=== PATIENT | female | born 1955 | race Caucasian/White ===

== ENCOUNTER 2016-11-30 10:00 | Outpatient (CLI) | payer MEDICARE ==
--- NOTE | 2016-11-30 12:24 | CT ---
CT PULMONARY LUNG SCAN: Date: 11/30/16 HISTORY: Smoker for 45 years. FINDINGS: There is a 6.0 mm, well circumscribed, smooth, oval, left perifissural nodule. This is better visua lized on the coronal and sagittal reconstructions. Mild emphysematous changes are noted. No pleural or pericardial effusions are identified. There are vascular calcifications without evidence of aneur ysmal dilatation of the abdominal aorta. Degenerative changes are present in the spine. Upper abdomi nal tomograms demonstrate changes of cholecystectomy. IMPRESSION: Lung-RADS Category 2 - benign findings. RECOMMENDATION: Continue annual screening with LDCT in 12 months. POS: [facility]
--- NOTE | 2016-12-14 08:18 | MMO ---
BILATERAL SCREENING MAMMOGRAM: DATE: 11/30/2016 HISTORY: A 61-year-old female for screening mammography. COMPARISON: 05/08/2011 FINDINGS: Bilateral MLO and CC views of the breasts show scattered fibroglandular breast tissue. Benign-appea ring calcifications are seen in the both breasts. There is no evidence of suspicious mass, suspicio us cluster of microcalcifications, or area of architectural distortion. Interpretation of this mammogram was performed with the assistance of computer-aided detection. IMPRESSION: BIRADS 2: Benign Finding(s) Annual screening mammography is recommended. POS: [facility]
== END 2016-11-30 10:01 | disposition home or self-care (01) ==
LOC: CT 10:00
PROVIDERS: ATTEND Family Medicine
DX: Z12.31 Encounter for screening mammogram for malignant neoplasm of breast (principal); Z12.2 Encounter for screening for malignant neoplasm of respiratory organs; F17.210 Nicotine dependence, cigarettes, uncomplicated
CPT/HCPCS: G0202; G0297; 77067

== ENCOUNTER 2017-04-15 16:45 | Outpatient (CLI) | payer MEDICARE | END 2017-04-15 16:46 | disposition home or self-care (01) | LOC: BICRAD 16:45 | PROVIDERS: ATTEND Family Medicine | DX: M25.562 Pain in left knee (principal) ==

== ENCOUNTER 2017-04-18 14:47 | Outpatient (CLI) | payer MEDICARE ==
--- NOTE | 2017-04-18 15:19 | RAD ---
LEFT LOWER LEG 2 VIEWS: HISTORY: Left leg pain. FINDINGS: The tibia and fibula are intact. No acute fracture, dislocation, dislocation, or aggressive osseous erosions are evident. IMPRESSION: No acute osseous abnormalities are demonstrated. POS: [facility]
--- NOTE | 2017-04-18 15:20 | RAD ---
LEFT HIP TWO VIEWS: History: Left hip pain. FINDINGS: There is mild joint space narrowing, osteophytosis and subchondral sclerosis. No acute fracture or di slocation are apparent. Femoral head contour is maintained. IMPRESSION: Mild osteoarthritic changes left hip. POS: [facility]
== END 2017-04-18 14:48 | disposition home or self-care (01) ==
LOC: BICMAMMO 14:47
PROVIDERS: ATTEND Family Medicine
DX: Z78.0 Asymptomatic menopausal state (principal); M79.605 Pain in left leg; M85.80 Other specified disorders of bone density and structure, unspecified site; M16.12 Unilateral primary osteoarthritis, left hip
CPT/HCPCS: 77080

== ENCOUNTER 2017-04-18 15:54 | Emergency (ER) | payer MEDICARE ==
[2017-04-18 16:43] LABS: #Basophils 0.1 thou/uL (0.0-0.2); #Eosinphils 0.2 thou/uL (0.0-0.7); #Lymphocytes 1.3 thou/uL (1.20-3.40); #Monocytes 0.6 thou/uL (0.11-0.59); %Basophils 0.7 % (0.0-1.0); %Eosinophils 2.3 % (0.0-10.0); %Lymphocytes 14.4 % (21.0-51.0); %Monocytes 6.3 % (0.0-10.0); %Neutrophils 76.3 % (42.0-75.0); Hemoglobin 17.7 g/dL (12.0-16.0); Mean Corpuscular HGB CONC 33.6 g/dL (32.0-36.0); Mean Corpuscular Hemoglobin 30.2 pg (27.0-31.0); Mean Corpuscular Volume 89.8 fl (81.0-99.0); Mean Platelet Volume 6.4 fL (7.4-10.4); Platelet Count 325 thou/uL (130-400); RBC Distribution Width 12.5 % (11.5-14.5); Red Blood Cell (RBC) Count 5.87 mill/uL (4.20-5.40); White Blood Cell (WBC) Count 9.2 thou/uL (4.8-10.8)
[2017-04-18 17:03] LABS: ALT (SGPT) 21 U/L (8-55); AST (SGOT) 20 U/L (5-34); Albumin 3.6 g/dL (3.4-4.8); Alkaline Phosphatase 131 U/L (40-150); Anion Gap 13 mmol/L (10-20); BUN (Urea Nitrogen) 18 mg/dL (9.8-20.1); Bilirubin, Total 0.4 mg/dL (0.2-1.2); CK (CPK) 45 U/L (29-168); Calc. Creatinine Clearance 0 mL/min (70-130); Calcium 9.3 mg/dL (7.8-10.44); Carbon Dioxide 24 mmol/L (23-31); Chloride 102 mmol/L (98-107); Estimated GFR-MDRD 36; Globulin 3.2 g/dL (2.4-3.5); Glucose 112 mg/dL (80-115); Potassium 3.7 mmol/L (3.5-5.1); Protein, Total 6.8 g/dL (6.0-8.3); Sodium 135 mmol/L (136-145)
[2017-04-18 17:18] LABS: Magnesium 1.9 mg/dL (1.6-2.6); Phosphorus 3.9 mg/dL (2.3-4.7)
[2017-04-18 18:15] LABS: Bilirubin Negative (Negative); Blood, Urine Negative (Negative); Clarity CLEAR (Clear); Glucose, Urine (Dipstick) Negative (Negative); Leukocyte Negative (Negative); Nitrite Negative (Negative); Protein, Urine (Dipstick) Negative (Neg-Trace); Specific Gravity, Urine 1.005 (1.002-1.036); Urobilinogen 0.2 mg/dL (0.2-1.0)
[2017-04-18] MEDS ORDERED: Diazepam 5 MG TAB ONE (18:26)
== END 2017-04-18 19:32 | disposition home or self-care (01) ==
LOC: ERS 15:54
DX: I89.0 Lymphedema, not elsewhere classified (principal); R06.00 Dyspnea, unspecified; R79.89 Other specified abnormal findings of blood chemistry; E78.5 Hyperlipidemia, unspecified; F31.9 Bipolar disorder, unspecified; F41.9 Anxiety disorder, unspecified; J44.9 Chronic obstructive pulmonary disease, unspecified; F17.210 Nicotine dependence, cigarettes, uncomplicated; I10 Essential (primary) hypertension; Z86.73 Personal history of transient ischemic attack (TIA), and cerebral infarction without residual deficits; Z79.899 Other long term (current) drug therapy
CPT/HCPCS: 36415; 80053; 81003; 82550; 83735; 84100; 85025; 93005; 96360; 96361

== ENCOUNTER 2017-12-02 15:38 | Outpatient (CLI) | payer MEDICARE ==
--- NOTE | 2017-12-02 17:31 | ULT ---
THYROID ULTRASOUND: INDICATIONS: History of thyroid nodules. COMPARISON: None. FINDINGS: The thyroid isthmus measures 0.2 cm. The right thyroid lobe measures 4.6 x 1.6 x 1.3 cm. The left thyroid lobe measures 4.9 x 1.4 x 1.6 cm. There are multiple nodules within both thyroid lobes. There is a 5 x 5 x 4 mm hypoechoic nodule within the mid to upper pole of the right thyroid gland. T here is an additional 5 mm hypoechoic nodule seen within the mid pole of the right thyroid lobe. The re is a 1.1 x 0.7 x 1.3 cm, solid, hyperechoic to isoechoic, well circumscribed nodule within the low er pole of the right thyroid lobe. There is a complex, partially cystic, mixed echogenic, well circumscribed nodule within the superior pole of the left thyroid lobe, measuring 1.4 x 1 x 0.8 cm. There is a simple cyst, measuring 1 cm, w ithin the inferior pole, left thyroid gland. IMPRESSION: 1. Solid nodule within the inferior pole of the right thyroid gland, consistent with a TI-RADS 3 les ion. No additional followup is recommended, as this lesion measures less than 1.5 cm in size. 2. Complex, partially cystic, mixed echogenicity, well circumscribed nodule within the superior pole of the left thyroid gland is consistent with a TI-RADS 3 lesion. No additional followup is recommen ded, as this lesion is less than 1.5 cm in size. POS: [facility]
== END 2017-12-02 15:39 | disposition home or self-care (01) ==
LOC: BICULT 15:38
PROVIDERS: ATTEND Family Medicine
DX: E07.89 Other specified disorders of thyroid (principal); E04.1 Nontoxic single thyroid nodule
CPT/HCPCS: 76536

== ENCOUNTER 2018-03-26 11:51 | Outpatient (CLI) | payer MEDICARE ==
[~2018-03-26 11:51] MED LIST: Iopamidol 370 76% 100 ML VIAL ONE
--- NOTE | 2018-03-26 14:31 | CT ---
CT CHEST WITHOUT CONTRAST: Date: 03/26/18 PROVIDED CLINICAL HISTORY: Nicotine dependence, lung cancer screening. FINDINGS: Comparison with 11/30/16. Vascular calcification, including coronary calcium, is demonstrated. The heart, pericardium, and grea t vessels are suboptimally evaluated on the absence of IV contrast material but demonstrate an otherw ise unremarkable unenhanced CT appearance. There is no evidence for thoracic lymph node enlargement with limitations in evaluation for hilar mila nopathy given lack of IV contrast. The airway appears patent and of normal caliber. Stable pleural based lymph node involving the left hemithorax. The lungs are free of significant nodu le or parenchymal opacity. Scattered emphysematous changes are seen. There is no pleural fluid, pleural thickening, or pneumothorax apparent. The visualized portions of the upper abdomen demonstrate an unremarkable unenhanced CT appearance. The osseous structures demonstrate no concerning lytic or blastic lesions. IMPRESSION: Stable exam. Lung-RADS Category 2 - Benign findings. Annual screening recommended. POS: [facility]
--- NOTE | 2018-03-26 14:52 | CT ---
CTA CAROTIDS: HISTORY: Abnormal carotid ultrasound. TECHNIQUE: A contrast enhanced CTA of the carotid arteries is performed, and 2D and 3D reconstructive images are performed on an independent 3D work station. FINDINGS: CTA images demonstrate atherosclerotic calcified and noncalcified plaque seen in the ascending aorta and aortic arch. Focal area of atherosclerotic plaque and approximately 60% origin left subclavian artery stenosis is seen. There is also some atherosclerotic plaque in the origin of the right brachiocephalic artery. Good flow is seen in the origin of the right and left vertebral arteries. RIGHT CAROTID: Good flow is seen in the proximal, mid, and distal right CCA. Circumferential calcif ied and noncalcified plaque is seen in the distal aspect of the right CCA, extending into the right c arotid bulb. There is complete occlusion of the right ICA from its origin. Good flow is seen in the right ECA. LEFT CAROTID: The left common carotid artery has some minimal plaque in the origin, extending into t he left CCA. Calcified and noncalcified plaque with ulceration is seen in the distal aspect of the l eft CCA, with calcified and noncalcified plaques extending into the left ICA, resulting in approximat ryan 25% left ICA origin stenosis. Some atherosclerotic plaque is seen in the origin of the left ECA. IMPRESSION: Extensive bilateral distal common carotid artery calcified plaques with occlusion of the right director internal audit al carotid artery and some atherosclerotic plaque in the proximal left internal carotid artery origin . POS: [facility]
== END 2018-03-26 11:52 | disposition home or self-care (01) ==
LOC: CT 11:51
PROVIDERS: ATTEND Thoracic Surgery (Cardiothoracic Vascular Surgery)
DX: F17.210 Nicotine dependence, cigarettes, uncomplicated (principal); I65.23 Occlusion and stenosis of bilateral carotid arteries
CPT/HCPCS: 70498; 82565; G0297

== ENCOUNTER 2018-11-26 11:58 | Outpatient (CLI) | payer MEDICARE ==
--- NOTE | 2018-11-26 13:12 | MMO ---
Bilateral MAMMO Bilat Screen DDI+DUSTY. CLINICAL HISTORY: Patient is 63 years old and is seen for screening. The patient has no family history of breast cancer. The patient has no personal history of cancer. VIEWS: The views performed were: bilateral craniocaudal with tomosynthesis and bilateral mediolateral oblique with tomosynthesis. FILMS COMPARED: The present examination has been compared to prior imaging studies performed at [facility] on 05/08/2011, and at [facility] on 11/30/2016. This study has been interpreted with the assistance of computer-aided detection. MAMMOGRAM FINDINGS: The breasts are heterogeneously dense, which could obscure a lesion on mammography. There are stable benign appearing calcifications seen in both breasts. There are no suspicious masses, suspicious calcifications, or new areas of architectural distortion. IMPRESSION: THERE IS NO MAMMOGRAPHIC EVIDENCE OF MALIGNANCY. A ROUTINE FOLLOW-UP MAMMOGRAM IN 1 YEAR IS RECOMMENDED. THE RESULTS OF THIS EXAM WERE SENT TO THE PATIENT. ACR BI-RADS Category 2 - Benign finding MAMMOGRAPHY NOTE: 1. A negative mammogram report should not delay a biopsy if a dominant of clinically suspicious mass is present. 2. Approximately 10% to 15% of breast cancers are not detected by mammography. 3. Adenosis and dense breasts may obscure an underlying neoplasm. Reported by: YULIYA PRESLEY MD Electonically Signed: [id number]
== END 2018-11-26 11:59 | disposition home or self-care (01) ==
LOC: BICMAMMO 11:58
PROVIDERS: ATTEND Family Medicine
DX: Z12.31 Encounter for screening mammogram for malignant neoplasm of breast (principal)
CPT/HCPCS: 77063; 77067

== ENCOUNTER 2019-04-23 08:37 | Outpatient (CLI) | payer MEDICARE ==
--- NOTE | 2019-04-23 11:20 | CT ---
CT PULMONARY LUNG SCAN: HISTORY: Smoker for 46 years. The patient still smokes 2 packs a day. COMPARISON: A 03/26/2018 exam. FINDINGS: There are changes of centrilobular emphysema noted. There are emphysematous blebs seen in the upper lobes. A pleural-based nodule along the major fissure on the left on axial image 103 is stable. There has been development of a small focus of slight ground-glass nodularity, although it may have a small semisolid component, within the right lower lobe. This is seen on axial image 126. This dens ity measures 5-6 mm in size. It is possible that this is just a small focus of pneumonitis. No homero tional nodular areas are seen. Reticular changes in the lung bases are probably related to scarring. No significant mediastinal adenopathy. Coronary calcifications are present. Visualized liver parenchyma shows no focal findings. IMPRESSION: 1. Lung RADS category 3 - probably benign. A new hard solid nodule has developed in the right lower lobe less than 6 mm in size. The recommendation is for a 6-month low-dose CT examination. 2. Lung RADS category S. This additional category is given for the presence of coronary calcificati ons. POS: [facility]
== END 2019-04-23 08:38 | disposition home or self-care (01) ==
LOC: CT 08:37
PROVIDERS: ATTEND Family Medicine
DX: Z12.2 Encounter for screening for malignant neoplasm of respiratory organs (principal); Z00.00 Encounter for general adult medical examination without abnormal findings; F17.210 Nicotine dependence, cigarettes, uncomplicated; R91.1 Solitary pulmonary nodule; I25.10 Atherosclerotic heart disease of native coronary artery without angina pectoris
CPT/HCPCS: G0297

== ENCOUNTER 2019-08-28 09:23 | Outpatient (CLI) | payer MEDICARE ==
--- NOTE | 2019-08-28 10:13 | MRI ---
MRI BRAIN EXAM OF THE [place]: HISTORY: Occluded right internal carotid artery noted on CT angiogram 03/26/2018. Left-sided weakness. CVA. TECHNIQUE: MR angiogram of the [place] IS performed in the axial plane utilizing 3-D [id number] mansoor ging. Maximum intensity projection images are submitted for dictation. FINDINGS: There is absence of flow related signal in the distal cervical and intracranial right internal caroti d artery, compatible with recent CT angiogram of the neck. There is appropriate flow related signal in the distal cervical and intracranial left internal carotid artery. Anterior circulation: There is flow related signal in the left and right M1 segments as well as A1 se gments. There is flow in the right A1 and M1 segments via patent collaterals from the anterior communicating artery as well as posterior communicating artery. No evidence of significant stenosis i n the right A1 or M1 segment OR proximal bilateral A2 segments. There is short great moderate stenosis/decreased flow related signal involving the mid left M1 segment. Symmetric proximal MCA bran ches. Posterior circulation demonstrates appropriate flow related signal in bilateral intracranial vertebra l arteries. Bilateral PICA artery origins have appropriate flow related signal. Both vertebral arteries supply a normal appearing basilar artery. Basilar artery and P1 segments have appropriate fl ow related signal. FLAIR images demonstrate extensive cavitary lacunar infarcts involving the right martin radiata and r ight centrum semiovale. Absent restricted diffusion. IMPRESSION: 1. Extensive chronic small vessel ischemic changes as well as lacunar infarcts, incompletely evaluate d. Better interrogation with a pre and postcontrast brain MRI is recommended. 2. Occlusion of the right internal carotid artery, compatible with CT angiogram the neck 03/26/2018. 3. Moderate stenosis/decreased flow related signal in the mid left M1 segment. CODE T Transcribed Date/Time: 08/28/2019 10:22 AM
== END 2019-08-28 09:24 | disposition home or self-care (01) ==
LOC: TBSIIMAG 09:23
PROVIDERS: ATTEND Family Medicine
DX: I63.231 Cerebral infarction due to unspecified occlusion or stenosis of right carotid arteries (principal); R53.1 Weakness; N18.3 Chronic kidney disease, stage 3 (moderate)
CPT/HCPCS: 70544

== ENCOUNTER 2019-12-10 18:24 | Inpatient (IN) | payer MEDICARE, OTHER ==
[2019-12-10] MEDS ORDERED: Morphine 4 MG/ML VIAL ONE (19:15)
[2019-12-10] MEDS ORDERED: Ondansetron PF 4 MG/2 ML Vial ONE (19:15)
[2019-12-10 19:45] LABS: Hemoglobin 16.1 g/dL (12.0-16.0); Mean Corpuscular HGB CONC 35.4 g/dL (32.0-36.0); Mean Corpuscular Hemoglobin 31.4 pg (27.0-31.0); Mean Corpuscular Volume 88.7 fL (78.0-98.0); Platelet Count 273 thou/uL (130-400); RBC Distribution Width 13.1 % (11.5-14.5); Red Blood Cell (RBC) Count 5.12 mill/uL (4.20-5.40); White Blood Cell (WBC) Count 11.4 thou/uL (4.8-10.8)
--- NOTE | 2019-12-10 19:51 | RAD ---
Exam:3 views left foot HISTORY: Fall. Trauma. Pain. COMPARISON: None FINDINGS: There is marked soft tissue swelling the midfoot. Diffuse bone demineralization. There does appear to be a nondisplaced fracture involving the second metatarsal head and a mildly displaced fracture along the third metatarsal head. Lisfranc alignment is maintained. IMPRESSION: Metacarpal fractures. Associated soft tissue swelling.
--- NOTE | 2019-12-10 20:04 | RAD ---
EXAM: RIGHT KNEE FOUR VIEWS: 12/10/19 HISTORY: Injury from a fall, left sided weakness. FINDINGS: No evidence for acute fracture or dislocation. No abnormal joint effusion. Very mild degenerative and osteoarthrosis change. IMPRESSION: Unremarkable right knee. POS: [facility]
[2019-12-10 20:05] LABS: ALT (SGPT) 11 U/L (8-55); AST (SGOT) 23 U/L (5-34); Albumin 3.4 g/dL (3.4-4.8); Alkaline Phosphatase 100 U/L (40-110); Anion Gap 15 mmol/L (10-20); BUN (Urea Nitrogen) 13 mg/dL (9.8-20.1); Bilirubin, Total 0.3 mg/dL (0.2-1.2); Calc. Creatinine Clearance 0 mL/min (70-130); Calcium 8.6 mg/dL (7.8-10.44); Carbon Dioxide 24 mmol/L (23-31); Chloride 89 mmol/L (98-107); Estimated GFR-MDRD 30; Glucose 125 mg/dL (80-115); Potassium 4.1 mmol/L (3.5-5.1); Protein, Total 6.4 g/dL (6.0-8.3); Sodium 124 mmol/L (136-145)
--- NOTE | 2019-12-10 20:06 | RAD ---
EXAM: CHEST ONE VIEW: 12/10/19 HISTORY: Injury from trauma. Heart size is within normal limits. The lungs appear clear. No confluent pneumonia, overt edema, or p leural effusion. IMPRESSION: No acute intrathoracic disease. POS: [facility]
[2019-12-10 20:07] LABS: Band 5 % (5-11); Eosinophils 1 % (0-10); Lymphocytes 3 % (21-51); MDiff Complete? YES; Monocytes 4 % (0-10); Neutrophil 87 % (42-75)
--- NOTE | 2019-12-10 20:13 | CT ---
Exam: Head CT without contrast HISTORY: Fall. Pain. COMPARISON: none FINDINGS: Hemorrhage: No intraparenchymal hemorrhage or extra-axial hematoma. Brain parenchyma: Cortical nichols-white matter differentiation is preserved. No mass effect or midline shift. Basilar cisterns are patent.White matter hypodensities are noted in the right frontal subcortical white matter. There are corresponding FLAIR hyperintensities noted on a brain MRI 08/28/19. Chronic small vessel ischemic changes are favored. Ventricular system: Ventricles and sulci are patent and symmetric. Calvarium: Intact. Sinuses and mastoid air cells: Adequate aeration. IMPRESSION: No acute intracranial process.
[2019-12-10] MEDS ORDERED: Aspirin 325 MG TAB ONE (20:39)
[2019-12-10] MEDS ORDERED: Boostrix 0.5 ML VIAL ONE (21:01)
--- NOTE | 2019-12-10 23:56 | PDOC.HHP ---
Hospitalist HPI - History of Present Illness L sided weakness History of Present Illness: Patient is a 64 year old female with PMH multiple TIAs who presents to ED for L sided weakness. She felt weak today and fell, unable to correct w/ L sided weakness, landed on L side and hit head. CT head performed in ED and negative. CXR without acute findingL foot/knee XR performed after she fell on it, and found metatarsal fracture, placed in splint. She reports many of similar episodes of unilateral weakness over last few months, approximately 20 episodes, they always resolve on their own rapidly though. She reports they beging after coughing or standing up straight. She has extensive history of carotid disease and has had bilateral endartarectomies and had a redo R endartarectomy in 2018. She sees Dr Hawkins of cardiology, saw a neurologist a long time ago, but that was for pain and not current symptoms. She is supposed to take aspirin and plavix daily, she is compliant with plavix but not with aspirin. Denies history of Afib. stroke in 1999 reported with no deficits. Patient to be admitted for workup of L sided weakness. Hospitalist ROS - Review of Systems Constitutional: denies: fever, chills, sweats, weakness, malaise, other Eyes: denies: pain, vision change, conjunctivae inflammation, eyelid inflamma tion, redness, other ENT: denies: ear pain, ear discharge, nose pain, nose discharge, nose congestion, mouth pain, mouth swelling, throat pain, throat swelling, other Respiratory: denies: cough, dry, shortness of breath, hemoptysis, SOB with excertion, pleuritic pain, sputum, wheezing, other Cardiovascular: denies: chest pain, palpitations, orthopnea, paroxysmal noc. dyspnea, edema, light headedness, other Gastrointestinal: denies: nausea, vomiting, abdominal pain, diarrhea, constipation, melena, hematochezia, other Genitourinary: denies: dysuria, frequency, incontinence, hematuria, retention, other Musculoskeletal: reports: foot pain (L sided in splint). denies: neck pain, shoulder pain, arm pain, back pain, hand pain, leg pain, other Skin: denies: rash, lesions, felecia, bruising, other Neurological: reports: weakness (L sided), numbness (L sided). denies: incoordination, change in speech, confusion, seizures, other All other systems reviewed; all pertinent +/- noted in HPI/Subj - Medication Medications: protonix 40mg po daily metoprolol tartrate 50mg po daily plavix 75mg po daily ativan 1mg po prn anxiety KCL 20meq daily losartan 25mg po daily lasix 40mg po daily Hospitalist History - Past Medical History Other Medical History: stroke in 1999 carotid artery disease HLD HTN COPD anxiety bipolar - Past Surgical History Other Surgical History: CABG appendectomy cholecystectomy hysterectomy - Family History Family History: reports: no pertinent history - Social History Smoking Status: Current every day smoker Alcohol: reports: None Drugs: reports: none - Exam General Appearance: NAD, awake alert Eye: PERRL, anicteric sclera ENT: normocephalic atraumatic, no oropharyngeal lesions, moist mucosa Neck: supple, symmetric, no JVD, no thyromegaly, no lymphadenopathy, no carotid bruit Heart: RRR, no murmur, no gallops, no rubs, normal peripheral pulses Respiratory: CTAB, no wheezes, no rales, no ronchi, normal chest expansion, no tachypnea, normal percussion Gastrointestinal: soft, non-tender, non-distended, normal bowel sounds, no palpable masses, no hepatomegaly, no splenomegaly, no bruit Extremities: no cyanosis, no clubbing, no edema Extremities - other findings: L foot in sling, antalgic ROM, tender to palpation, pulses 2+ equal Skin: normal turgor, no lesions, no rashes Neurological: cranial nerve grossly intact Neurological - other findings: L arm and leg reduced sensation L arm 4/5 strength. L foot painful limits Musculoskeletal: generalized weakness Psychiatric: normal affect, normal behavior, A&O x 3 Hospitalist Results - Labs Result Diagrams: 12/10/19 19:35 12/10/19 19:35 Lab results: WBC 11.4 thou/uL (4.8-10.8) H 12/10/19 19:35 Hgb 16.1 g/dL (12.0-16.0) H 12/10/19 19:35 Hct 45.4 % (36.0-47.0) 12/10/19 19:35 MCV 88.7 fL (78.0-98.0) 12/10/19 19:35 Plt Count 273 thou/uL (130-400) 12/10/19 19:35 Band Neuts % (Manual) 5 % (5-11) 12/10/19 19:35 Sodium 124 mmol/L (136-145) L 12/10/19 19:35 Potassium 4.1 mmol/L (3.5-5.1) 12/10/19 19:35 Chloride 89 mmol/L (98-107) L 12/10/19 19:35 Carbon Dioxide 24 mmol/L (23-31) 12/10/19 19:35 BUN 13 mg/dL (9.8-20.1) 12/10/19 19:35 Creatinine 1.69 mg/dL (0.6-1.1) H 12/10/19 19:35 Glucose 125 mg/dL (80-115) H 12/10/19 19:35 Calcium 8.6 mg/dL (7.8-10.44) 12/10/19 19:35 Total Bilirubin 0.3 mg/dL (0.2-1.2) 12/10/19 19:35 AST 23 U/L (5-34) 12/10/19 19:35 ALT 11 U/L (8-55) 12/10/19 19:35 Alkaline Phosphatase 100 U/L (40-110) 12/10/19 19:35 Troponin I Less than 0.010 ng/mL (< 0.028) 12/10/19 19:35 Serum Total Protein 6.4 g/dL (6.0-8.3) 12/10/19 19:35 Albumin 3.4 g/dL (3.4-4.8) 12/10/19 19:35 Additional comment: Labs, imaging reports, ED records, EKG reviewed Hospitalist H&P A/P - Plan Plan: Patient is a 64 year old female with PMH multiple TIAs who presents to ED for L sided weakness. # L sided weakness - concerning for TIA # history of stroke in 1999 # carotid artery disease # HLD Today had new L sided weakness which caused fall, CT head performed in ED and negative, she reports many of similar episodes of unilateral weakness over last few months, approximately 20 episodes, they always resolve on their own rapidly though. She reports they begin after coughing or standing up straight. She has extensive history of carotid disease and has had bilateral endartarectomies and had a redo R endartarectomy in 2018. She sees Dr Hawkins of cardiology, saw a neurologist a long time ago, but that was for pain and not current symptoms. She is supposed to take aspirin and plavix daily, she is compliant with plavix but not with aspirin. Denies history of Afib. stroke in 2000 reported with no deficits. Patient to be admitted for workup of L sided weakness. - admit to neurology floor - permissive HTN - stroke team consult - consult neurology/cardiology - concern that source of multiple strokes could be heart or carotid artery throwing clots, will order US carotid and echocardiogram and consult Dr Hawkins who is more familiar with case and may be able to supplement history - test of choice for vasculature would probably be CTA or MRA of head/neck, cannot do CT due to GFR, will defer to neurology and await return of kidney function - should stop smoking, see below - load aspirin, continue plavix, start very high intensity statin # HTN - permissive HTN # COPD - no wheezing on my exam, PRN nebs ordered # anxiety, bipolar - resume home meds once med rec complete # leukocytosis - presume secondary to stress of trauma, follow up UA # CKD vs JACINTO - hold cozaar, trend BMP # hyponatremia - hold lasix/cozaar. fluid restrictions. trend BMP. consider ne phrology consult # tobacco abuse - smokes 4 ppd - cessation education ordered - nicotine patch # metatarsal fracture - sling placed in ED - consult orthopedic surgery DVT/GI ppx
[2019-12-11] MEDS ORDERED: Labetalol HCl 100 MG/20 ML VIAL SLOW IVP PRN ×2 (00:04→00:14)
[2019-12-11] MEDS ORDERED: hydrALAZINE 20 MG/ML VIAL SLOW IVP PRN ×2 (00:04→00:14)
[2019-12-11] MEDS ORDERED: Enalaprilat Dihydrate 1.25 MG/ML VIAL SLOW IVP PRN (00:04)
[2019-12-11] MEDS ORDERED: cloNIDine 0.1 MG TAB PO PRN (00:14)
[2019-12-11] MEDS ORDERED: Promethazine HCl 12.5 MG in Sodium Chloride 0.9% 50 ML IVPB PRN (00:14)
[2019-12-11] MEDS ORDERED: Ondansetron PF 4 MG/2 ML Vial IVP PRN (00:14)
[2019-12-11] MEDS ORDERED: Guaifenesin DM 100-10/5 ML UDCUP PO PRN (00:14)
[2019-12-11] MEDS ORDERED: Acetaminophen 325 MG TAB PO PRN (00:14)
[2019-12-11] MEDS ORDERED: Aspirin 325 mg Enteric Coated Tablet PO SCH (00:15)
[2019-12-11] MEDS ORDERED: Electrolyte Replacement Protoc 1 EACH EACH FS PRN (00:15)
[2019-12-11 00:42] VITALS: BMI 32.8
[2019-12-11] MEDS: HYDROcodone/Acetaminophen 5/325 mg Tablet PO PRN ×2 (01:36→11:57)
[2019-12-11 02:04] LABS: Troponin I 0.021 ng/mL (< 0.028)
[2019-12-11 02:31] LABS: Bilirubin Negative (Negative); Blood, Urine Negative (Negative); Clarity Clear (Clear); Glucose, Urine (Dipstick) Normal (Negative); Ketone, Urine Negative (Negative); Leukocyte Negative Leu/uL (Negative); Nitrite Negative (Negative); Protein, Urine (Dipstick) Negative (Neg-Trace); RBC/HPF 0-3 HPF (0-3); Specific Gravity, Urine 1.009 (1.002-1.036); Squamous Epithelial 0-3 HPF (0-3); Urobilinogen Normal mg/dL (Less than 2); WBC/HPF 0-3 HPF (0-3)
[2019-12-11 02:38] LABS: Bacteria/HPF Rare-Few HPF (None Seen)
[2019-12-11 02:40] LABS: Urine Culture Reflex No No
[2019-12-11] MEDS ORDERED: Lorazepam 2 MG/ML VIAL SLOW IVP PRN (03:20)
[2019-12-11 05:12] LABS: #Eosinphils 0.1 thou/uL (0.0-0.7); #Lymphocytes 0.7 thou/uL (1.20-3.40); #Monocytes 0.6 thou/uL (0.11-0.59); #Neutrophils 5.8 thou/uL (1.40-6.50); %Basophils 0.3 % (0.0-1.0); %Eosinophils 1.1 % (0.0-10.0); %Lymphocytes 9.6 % (21.0-51.0); %Monocytes 8.3 % (0.0-10.0); %Neutrophils 80.7 % (42.0-75.0); Hemoglobin 14.4 g/dL (12.0-16.0); Mean Corpuscular HGB CONC 35.1 g/dL (32.0-36.0); Mean Corpuscular Hemoglobin 31.6 pg (27.0-31.0); Mean Corpuscular Volume 89.9 fL (78.0-98.0); Mean Platelet Volume 6.7 fL (7.4-10.4); Platelet Count 231 thou/uL (130-400); RBC Distribution Width 12.9 % (11.5-14.5); Red Blood Cell (RBC) Count 4.56 mill/uL (4.20-5.40); White Blood Cell (WBC) Count 7.1 thou/uL (4.8-10.8)
[2019-12-11 05:35] LABS: Anion Gap 9 mmol/L (10-20); BUN (Urea Nitrogen) 15 mg/dL (9.8-20.1); Calc. Creatinine Clearance 52 mL/min (70-130); Calcium 8.4 mg/dL (7.8-10.44); Carbon Dioxide 30 mmol/L (23-31); Cardiac Risk 3.8 (Less than 4.5); Chloride 88 mmol/L (98-107); Cholesterol 115 mg/dl (< 200 Desired); Estimated GFR-MDRD 32; Glucose 129 mg/dL (80-115); HDL Cholesterol 30 mg/dL (>60 Neg Risk); LDL Cholesterol, Calculated 57 mg/dL; Magnesium 1.8 mg/dL (1.6-2.6); Potassium 3.3 mmol/L (3.5-5.1); Sodium 124 mmol/L (136-145); Triglycerides 139 mg/dL (Less than 150)
[2019-12-11] MEDS ORDERED: Magnesium 2 GM/50 ML 2 GM in Premix Bag 1 BAG IVPB SCH (06:45)
[2019-12-11] MEDS ORDERED: Potassium Chloride 20 MEQ TAB PO SCH ×2 (07:15→13:45)
[2019-12-11] MEDS: FLU VACC QS2020-21(65YR UP)/PF 240 MCG/0.7 ML SYRINGE IM ONE (08:43)
[2019-12-11] MEDS: Aspirin 81 mg Enteric Coated Tablet PO SCH (08:44)
[2019-12-11] MEDS: Nicotine 21 MG PATCH TD SCH (08:45)
[2019-12-11] MEDS: Polyethylene Glycol 3350 17 GM Packet PO SCH (08:46)
[2019-12-11] MEDS: Enoxaparin Sodium 40 MG/0.4 ML SYRINGE SC SCH (08:46)
[2019-12-11] MEDS ORDERED: Clopidogrel Bisulfate 75 MG TAB PO SCH (09:00)
--- NOTE | 2019-12-11 09:55 | MRI ---
Exam: Brain MRI without contrast HISTORY: Stroke COMPARISON: None FINDINGS: Calvarial marrow signal intensity: Appropriate T1 signal Gradient echo sequence: No hemorrhage Brain parenchyma: No mass, mass effect or midline shift. Brain volume, age-appropriate. Cortical nichols-white matter differentiation: Preserved Restricted diffusion: Central arterial flow voids are maintained. Absent restricted diffusion White matter signal intensities: T2, FLAIR white matter hyperintensities due to chronic small vessel ischemic changes Sinuses: Adequate aeration of the paranasal sinuses and mastoid air cells. IMPRESSION: 1. Absent restricted diffusion. No acute infarct.
--- NOTE | 2019-12-11 09:57 | CON ---
DATE OF CONSULTATION: 12/11/2019 [facility]IC[facility] CONSULTING PHYSICIAN: Inderjit Desai MD REASON FOR CONSULTATION: Left metatarsal fracture. HISTORY OF PRESENT ILLNESS: This is a 64-year-old female with past medical history including multiple TIAs, who presented to our emergency department for left-sided weakness and a fall at home. She states that she landed on her left side and hit her head. Workup in the emergency department was negative for an acute stroke. She was found to have a left third metatarsal fracture. This was initially placed in a splint and she was transferred to the floor for hospital admission. We have been consulted for this reason. Currently at bedside, the patient is being moved to the transport [facility] for MRI. She denies any numbness or tingling. She states that she was put in a postoperative shoe recently, and feels much better in regard to her foot pain. Pain is resolved with lying still and worsened with movement. PAST MEDICAL HISTORY: Includes CVA in 1999, carotid artery disease, hyperlipidemia, hypertension, COPD, anxiety, and bipolar disorder. PAST SURGICAL HISTORY: CABG, appendectomy, cholecystectomy, and hysterectomy. SOCIAL HISTORY: The patient is an everyday smoker. She denies any alcohol or drug use. She normally gets around without the use of any assistive aids. FAMILY HISTORY: Reviewed and noncontributory for this visit. REVIEW OF SYSTEMS: Ten-point review of systems conducted and otherwise negative except for stated above. CURRENT PHYSICAL EXAMINATION: VITAL SIGNS: Shows vital signs including temperature of 97.3, pulse of 59, respiratory rate of 20, O2 saturation 92% on room air, and blood pressure of 121/69. GENERAL: The patient is awake and alert. She is in no apparent distress. She is pleasant and cooperative with exam today. She is currently being moved over to the [facility] for MRI evaluation at the time of my exam. HEENT: Head is normocephalic and atraumatic. NECK: Supple. Trachea midline, and breathing is nonlabored. EXTREMITIES: Evaluation of the left lower extremity shows an Bruno wrap over the foot with a postoperative shoe present. Postoperative shoe was removed briefly for evaluation. The patient is tender to palpation along the midfoot. She is able to move all her toes. She is able to plantar flex and dorsiflex at the ankle. Distal neurovascular status intact. RADIOGRAPHIC IMAGING: Reviewed today including three views of the left foot demonstrates a nondisplaced fracture of the third metatarsal at the neck. ASSESSMENT: Left third metatarsal fracture. PLAN: At this time, the patient has been placed in a postoperative shoe. I have ordered an orthopedic boot. She states she is comfortable in the shoe. If she would like to stay in this, that is okay with us. If she would like to transition to the boot, that is also okay with us. She may remove this while in bed or keep it in position if it makes her more comfortable. She may remove it for showering. Weight bear as tolerated. We will see her for orthopedic followup in our clinic in 3 to 4 weeks. Job ID: [id number]
[2019-12-11] MEDS ORDERED: Sodium Chloride 0.9% 500 ML IV SCH (10:00)
[2019-12-11] MEDS ORDERED: Lorazepam 1 MG TAB PO PRN (10:25)
[2019-12-11] MEDS ORDERED: Gabapentin 300 MG CAP PO SCH (11:30)
--- NOTE | 2019-12-11 11:55 | ULT ---
BILATERAL CAROTID DUPLEX ULTRASOUND: DATE: 12/11/2019 HISTORY: TIA. TECHNIQUE: Antoine scale ultrasound with color flow and spectral Doppler imaging of the extracranial carotid artery systems performed bilaterally. FINDINGS: The peak systolic velocity in the right ICA measures 49 cm/second with an end-diastolic velocity of 1 1 cm/second and a systolic ratio of 1.87. The peak systolic velocity in the left ICA measures 170 cm/second with an end-diastolic velocity of 1 6 cm/second and a systolic ratio of 2.1. Flow in both vertebral arteries remains antegrade. IMPRESSION: Moderate (50-69%) stenosis involving the left ICA. POS: AH
[2019-12-11 12:34] LABS: SARS-CoV-2 MS2 Positive; SARS-CoV-2 N Gene Negative; SARS-CoV-2 S Gene Negative; SARS-CoV-2 by NAA Not Detected (NotDetected); SARS-CoV-2 orf1ab Negative
[2019-12-11] MEDS: Lorazepam 1 MG TAB PO PRN ×2 (13:03→20:52)
--- NOTE | 2019-12-11 13:03 | CON ---
NEUROLOGY CONSULTATION DATE OF CONSULTATION: 12/11/2019 REASON FOR CONSULTATION: Left-sided weakness. HISTORY OF PRESENT ILLNESS: Ms. Roseanne ahumada is a 64-year-old female with medical history significant for multiple TIAs, presented to the emergency room with left-sided weakness of the upper and lower extremities. Per patient, she was feeling weak yesterday and was unable to walk and fell on her left side and hit her head. She reports similar episodes since the last few months, which last for a few minutes and then resolve on its own. In the emergency room, head CT was performed, which was negative for acute intracranial pathology. Chest x-ray did not show any acute findings. She was also found to have metatarsal fracture. Per patient, she feels dizzy when she stands up and she does have history of extensive carotid artery disease and has bilateral endarterectomy and redo right carotid endarterectomy in 2018. The patient is seen Dr. Hawkins, customer support engineer and supposed to be taking dual anti-platelet therapy with aspirin and Plavix but she is only taking Plavix at this time. She did have a stroke in 1999 with no residual side effects. The patient denies nausea, vomiting, headache, chest pain, abdominal pain, recent illness or recent exposure to COVID, problems with speech or swallowing. MEDICATIONS: 1. Protonix 40 mg p.o. daily. 2. Metoprolol tartrate 50 mg p.o. daily. 3. Plavix 75 mg p.o. daily. 4. Ativan 1 mg p.o. p.r.n. anxiety. 5. Losartan 25 mg daily. 6. Lasix 40 mg daily. PAST MEDICAL HISTORY: Stroke in 1999 with no residual deficits, carotid artery disease, hyperlipidemia, hypertension, COPD, anxiety, bipolar. PAST SURGICAL HISTORY: CABG, appendectomy, cholecystectomy, hysterectomy, carotid endarterectomy. FAMILY HISTORY: No family history of stroke. SOCIAL HISTORY: The patient smokes every day. Denies alcohol, illegal drug use. ALLERGIES: Tetracyclines, codeine - Review of Systems Constitutional: denies: fever, chills, sweats, weakness, malaise, other Eyes: denies: pain, vision change, conjunctivae inflammation, eyelid inflammation, redness, other ENT: denies: ear pain, ear discharge, nose pain, nose discharge, nose congestion, mouth pain, mouth swelling, throat pain, throat swelling, other Respiratory: denies: cough, dry, shortness of breath, hemoptysis, SOB with excertion, pleuritic pain, sputum, wheezing, other Cardiovascular: denies: chest pain, palpitations, orthopnea, paroxysmal noc. dyspnea, edema, light headedness, other Gastrointestinal: denies: nausea, vomiting, abdominal pain, diarrhea, constipation, melena, hematochezia, other Genitourinary: denies: dysuria, frequency, incontinence, hematuria, retention, other Musculoskeletal: reports: foot pain (L sided in splint). denies: neck pain, shoulder pain, arm pain, back pain, hand pain, leg pain, other Skin: denies: rash, lesions, felecia, bruising, other Neurological: reports: weakness (L sided), numbness (L sided). denies: incoordination, change in speech, confusion, seizures, other All other systems reviewed; all pertinent +/- noted in HPI/Subj - Exam General Appearance: NAD, awake alert Eye: PERRL, anicteric sclera ENT: normocephalic atraumatic, no oropharyngeal lesions, moist mucosa Neck: supple, symmetric, no JVD, no thyromegaly, no lymphadenopathy, no carotid bruit Heart: RRR, no murmur, no gallops, no rubs, normal peripheral pulses Respiratory: CTAB, no wheezes, no rales, no ronchi, normal chest expansion, no tachypnea, normal percussion Gastrointestinal: soft, non-tender, non-distended, normal bowel sounds, no palpable masses, no hepatomegaly, no splenomegaly, no bruit Extremities: no cyanosis, no clubbing, no edema Extremities - other findings: L foot in sling, antalgic ROM, tender to palpation, pulses 2+ equal Skin: normal turgor, no lesions, no rashes Neurological: Mental status, the patient is alert and oriented to person, place, and time. Recent and remote memory, clear. Speech is clear. Cranial nerves 2 through 12 intact. Motor, muscle tone and bulk are normal. Strength 4/5 in the left upper and lower extremity, 5/5 in the right upper and lower extremity. Unable to move left leg because of pain in the foot secondary to fracture. Cerebellar: Slow on the left secondary to weakness. Gait deferred due to patient's safety reasons. DATA REVIEWED: I reviewed the labs which were significant for hyponatremia with a sodium of 124. The EKG showed normal sinus rhythm. Lab results: WBC 11.4 thou/uL (4.8-10.8) H 12/10/19 19:35 Hgb 16.1 g/dL (12.0-16.0) H 12/10/19 19:35 Hct 45.4 % (36.0-47.0) 12/10/19 19:35 MCV 88.7 fL (78.0-98.0) 12/10/19 19:35 Plt Count 273 thou/uL (130-400) 12/10/19 19:35 Band Neuts % (Manual) 5 % (5-11) 12/10/19 19:35 Sodium 124 mmol/L (136-145) L 12/10/19 19:35 Potassium 4.1 mmol/L (3.5-5.1) 12/10/19 19:35 Chloride 89 mmol/L (98-107) L 12/10/19 19:35 Carbon Dioxide 24 mmol/L (23-31) 12/10/19 19:35 BUN 13 mg/dL (9.8-20.1) 12/10/19 19:35 Creatinine 1.69 mg/dL (0.6-1.1) H 12/10/19 19:35 Glucose 125 mg/dL (80-115) H 12/10/19 19:35 Calcium 8.6 mg/dL (7.8-10.44) 12/10/19 19:35 Total Bilirubin 0.3 mg/dL (0.2-1.2) 12/10/19 19:35 AST 23 U/L (5-34) 12/10/19 19:35 ALT 11 U/L (8-55) 12/10/19 19:35 Alkaline Phosphatase 100 U/L (40-110) 12/10/19 19:35 Troponin I Less than 0.010 ng/mL (< 0.028) 12/10/19 19:35 Serum Total Protein 6.4 g/dL (6.0-8.3) 12/10/19 19:35 Albumin 3.4 g/dL (3.4-4.8) 12/10/19 19:35 ASSESSMENT AND PLAN: Ms. Roseanne Ahumada is a 64-year-old female with history significant for multiple TIAs, and prior stroke in 1999 with no residual deficits, presented with acute onset left-sided weakness with a fall. An MRI of the brain reviewed and was negative for acute intracranial pathology, most likely TIA. Carotid Dopplers reviewed which showed moderate 50% to 69% stenosis involving the left ICA. Consider Vascular Surgery input. Telemetry to rule out arrhythmias. 2D echo to evaluate for left ventricular ejection fraction. Permissive strict control of blood pressure and blood glucose. Check hemoglobin A1c, fasting lipid panel, and TSH. Continue home medications. Continue aspirin and Plavix for secondary stroke prevention, continue high-intensity statin for secondary stroke prevention. EEG reviewed and was negative for cortical irritability. Neuro checks every 4 hours. Continue medical management per primary team. DVT prophylaxis. Continue medical management per primary team. PT/OT/speech. We will continue to follow. Thank you for the consult. Job ID: [id number] [facility]
--- NOTE | 2019-12-11 14:48 | CT ---
EXAM: CT cervical spine PROVIDED CLINICAL HISTORY: Right-sided weakness, multiple falls. TECHNIQUE: Contiguous axial CT images are obtained through the cervical spine from the skull base to the T2 leve l. Sagittal and coronal reformatted images are provided. COMPARISON: CT angiogram neck on 03/26/2018 FINDINGS: No evidence for fracture or traumatic subluxation. There are mild degenerative changes seen in the cervical spine. A disc osteophyte complex is seen at the C3-4 level which narrows the ventral subarachnoid space. Mild left-sided neural foraminal narrowing is present. The right neural foramen is patent based on CT evaluation. Disc osteophyte comp stevan is also present at the C5-6 level which narrows the ventral subarachnoid space and possibly encroaches on the anterior aspect of the spinal cord; although, this is difficult to definitely evalu ate at this level. Neural foramina appear to be patent based on CT evaluation. No prevertebral soft tissue swelling apparent. Chronic lung changes are seen in the upper lung zones with evidence of emphysematous changes and mild honeycombing right lung apex. Groundglass densities are seen in each visualized upper lung zone which may be related to volume loss is nonspecific. There is a small hypodense nodule in the right lobe of thyroid gland measuring 1.1 cm which was also present on study in 2019. Further evaluation with thyroid ultrasound is recommended. Prominent vascular calcifications are seen in the carotid arteries with surgical clips adjacent to ea ch carotid artery bifurcation. Mucosal thickening is seen in a few posterior right ethmoidal air cells. IMPRESSION: 1. No evidence for fracture or traumatic subluxation. 2. Mild degenerative changes in the cervical spine similar to findings on CTA neck in 2019. 3. Hypodense nodule right lobe of thyroid gland. This does appear stable compared to prior study in 2 019, but further evaluation with thyroid ultrasound is recommended. 4. Prominent calcifications bilateral carotid arteries. 5. Chronic lung changes..
--- NOTE | 2019-12-11 20:01 | PDOC.HOSPP ---
- Subjective Encounter Date: 12/11/19 Encounter Time: 15:00 Subjective: pt up in bed no complains - Objective Vital Signs & Weight: Vital Signs (12 hours) Temp Pulse Pulse Pulse Resp BP BP 12/11/19 15:35 66 70 147/84 H 127/75 12/11/19 15:31 97.3 F L 69 18 12/11/19 15:13 66 70 147/84 H 127/75 12/11/19 11:43 97.7 F 70 16 BP Pulse Ox 12/11/19 15:35 12/11/19 15:31 135/74 94 L 12/11/19 15:13 12/11/19 11:43 132/66 89 L Weight Weight 210 lb Result Diagrams: 12/11/19 04:50 12/11/19 04:50 Hospitalist ROS - Review of Systems Cardiovascular: denies: chest pain, palpitations, orthopnea, paroxysmal noc. dyspnea, edema, light headedness, other Gastrointestinal: denies: nausea, vomiting, abdominal pain, diarrhea, constipation, melena, hematochezia, other Genitourinary: denies: dysuria, frequency, incontinence, hematuria, retention, other - Medication Medications: Active Medications Generic Name Dose Route Start Last Admin Trade Name Freq PRN Reason Stop Dose Admin Hydrocodone Bitart/Acetaminophen 1 tab 12/11/19 00:14 12/11/19 11:57 Hydrocodone/Acetaminophen 5/325 Mg Tablet PO 1 tab Q4H PRN Administration Moderate Pain (4-6) Aspirin 81 mg 12/11/19 09:00 12/11/19 08:44 Aspirin 81 Mg Enteric Coated Tablet PO 81 mg DAILY JERILYN Administration Enoxaparin Sodium 40 mg 12/11/19 09:00 12/11/19 08:46 Enoxaparin Sodium 40 Mg/0.4 Ml Syringe SC 40 mg 0900 JERILYN Administration Lorazepam 1 mg 12/11/19 03:20 12/11/19 08:50 Lorazepam 2 Mg/Ml Vial SLOW IVP 1 mg Q20M PRN Administration give manager semiconductor to MRI Lorazepam 1 mg 12/11/19 12:41 12/11/19 13:03 Lorazepam 1 Mg Tab PO 1 mg BIDPRN PRN Administration Anxiety Nicotine 21 mg 12/11/19 09:00 12/11/19 08:45 Nicotine 21 Mg Patch TD 21 mg DAILY JERILYN Administration Ondansetron HCl 4 mg 12/11/19 00:14 12/11/19 11:58 Ondansetron Pf 4 Mg/2 Ml Vial IVP 4 mg Q6H PRN Administration Nausea/Vomiting use 1st Polyethylene Glycol 17 gm 12/11/19 09:00 12/11/19 08:46 Polyethylene Glycol 3350 17 Gm Packet PO Not Given DAILY JERILYN - Exam Neck: negative: supple, symmetric, no JVD, no thyromegaly, no lymphadenopathy, no carotid bruit, JVD Heart: negative: RRR, no murmur, no gallops, no rubs, normal peripheral pulses, irregular, diminshed peripheral pulses, murmur present, II/IV, III/IV Respiratory: negative: CTAB, no wheezes, no rales, no ronchi, normal chest expansion, no tachypnea, normal percussion, rales, rhonchi, tachypneic, wheezes Gastrointestinal: negative: soft, non-tender, non-distended, normal bowel sounds, no palpable masses, no hepatomegaly, no splenomegaly, no bruit, no guarding, no rigidity, tender to palpation, distended, diminished bowl sounds, voluntary guarding Extremities - other findings: Left foot in boot Hosp A/P (1) Smoking Code(s): F17.200 - NICOTINE DEPENDENCE, UNSPECIFIED, UNCOMPLICATED Status: Acute (2) TIA (transient ischemic attack) Code(s): G45.9 - TRANSIENT CEREBRAL ISCHEMIC ATTACK, UNSPECIFIED Status: Acute (3) Stroke Code(s): I63.9 - CEREBRAL INFARCTION, UNSPECIFIED Status: Acute - Plan Patient's MRI brain was negative for acute stroke. She did have carotid Dopplers done which indicated the left 50 to 69% blockage. I did speak with Dr. Srinivasan who is a vascular surgeon who stated that this is consistent with her previous one that was done earlier this year. Patient smokes 4 packs a day. Physical therapy consulted to see if patient is able to ambulate. Echo ordered pending results. Patient currently on aspirin Plavix and statin.
[2019-12-11] MEDS: Atorvastatin Calcium 40 MG TAB PO SCH (20:55)
--- NOTE | 2019-12-11 21:51 | CON ---
DATE OF CONSULTATION: 12/11/2019 REASON FOR CONSULTATION: Hypertension, hypercholesterolemia, continued smoking, transient ischemic attacks, and carotid arterial disease. HISTORY OF PRESENT ILLNESS: Ms. Brooks is a 64-year-old woman, with the above listed problems. She was admitted with recurrent numbness and lack of attention to the left side of her body. She has not had any chest pain. One time she thought she did have chest pain, but then found that was actually her hand on her chest. She has had no angina. MEDICATIONS: At home, she is on; 1. Losartan. 2. Potassium. 3. Metoprolol. 4. Clopidogrel. 5. Pantoprazole. 6. Gabapentin. ALLERGIES: TO CODEINE. SOCIAL HISTORY: She continues to smoke despite strong advice not to. PHYSICAL EXAMINATION: VITAL SIGNS: Blood pressure is 132/66, pulse 70 and regular. LUNGS: Clear. CARDIAC: Normal S1, normal S2. There is a 2 to 3/6 systolic murmur at right upper sternal border. No diastolic murmur. No S3. ABDOMEN: Soft, nontender. EXTREMITIES: Warm and dry. No clubbing or cyanosis. There is mild edema. PERTINENT LABORATORY DATA: Creatinine is 1.62, sodium is 124. Reviewing the records, she does have evidence of an occluded carotid artery on the right with a [id number] stenosis on the left. She is followed by Dr. Srinivasan for this. She was also found to have a left subclavian 60% lesion. MRA in the past has revealed small vessel disease, intracranial. LDL cholesterol 57. ASSESSMENT: 1. Recurrent TIAs, possibly related to small-vessel disease. 2. Carotid arterial disease. 3. Hypertension. 4. Hyponatremia. 5. Renal failure, stage 3 to 4. PLAN: 1. Intravenous fluids 500 mL given. 2. We would resume losartan. 3. Reduce metoprolol to 25 mg a day. 4. No further recommendations. You may wish to ask Dr. Srinivasan to re-evaluate, but I suspect this is medical therapy. Please re-consult if needed. ADDENDUM: I strongly advised the patient to quit smoking. Likely would be very high risk for recurrent TIAs if continues to smoke. Also aspirin has been added to the current regimen. Continue statin therapy. Job ID: [id number] [facility]
[2019-12-12] MEDS: HYDROcodone/Acetaminophen 5/325 mg Tablet PO PRN ×4 (01:35→23:15)
[2019-12-12 04:49] LABS: #Eosinphils 0.1 thou/uL (0.0-0.7); #Lymphocytes 0.6 thou/uL (1.20-3.40); #Monocytes 0.6 thou/uL (0.11-0.59); #Neutrophils 7.3 thou/uL (1.40-6.50); %Basophils 0.2 % (0.0-1.0); %Eosinophils 1.3 % (0.0-10.0); %Lymphocytes 7.5 % (21.0-51.0); %Monocytes 6.4 % (0.0-10.0); %Neutrophils 84.6 % (42.0-75.0); Hemoglobin 14.7 g/dL (12.0-16.0); Mean Corpuscular HGB CONC 34.9 g/dL (32.0-36.0); Mean Corpuscular Hemoglobin 31.4 pg (27.0-31.0); Platelet Count 258 thou/uL (130-400); Red Blood Cell (RBC) Count 4.67 mill/uL (4.20-5.40); White Blood Cell (WBC) Count 8.6 thou/uL (4.8-10.8)
[2019-12-12 05:37] LABS: Anion Gap 14 mmol/L (10-20); BUN (Urea Nitrogen) 14 mg/dL (9.8-20.1); Calc. Creatinine Clearance 56 mL/min (70-130); Calcium 8.4 mg/dL (7.8-10.44); Carbon Dioxide 24 mmol/L (23-31); Chloride 98 mmol/L (98-107); Estimated GFR-MDRD 35; Glucose 150 mg/dL (80-115); Magnesium 2.2 mg/dL (1.6-2.6); Potassium 4.2 mmol/L (3.5-5.1); Sodium 132 mmol/L (136-145)
[2019-12-12] MEDS ORDERED: Gabapentin 300 MG CAP PO SCH (09:00)
[2019-12-12] MEDS ORDERED: Non-Formulary Item 1 EACH (Gabapentin [Gabapentin] 600 MG Tablet) PO SCH (09:00)
[2019-12-12] MEDS: Aspirin 81 mg Enteric Coated Tablet PO SCH (09:05)
[2019-12-12] MEDS: Enoxaparin Sodium 40 MG/0.4 ML SYRINGE SC SCH (09:06)
[2019-12-12] MEDS: Nicotine 21 MG PATCH TD SCH (09:06)
[2019-12-12] MEDS: Clopidogrel Bisulfate 75 MG TAB PO SCH (09:06)
[2019-12-12] MEDS: Polyethylene Glycol 3350 17 GM Packet PO SCH (09:07)
[2019-12-12] MEDS: Lorazepam 1 MG TAB PO PRN ×2 (09:19→21:36)
--- NOTE | 2019-12-12 11:35 | PDOC.HOSPP ---
- Subjective Encounter Date: 12/12/19 (\) Encounter Time: 11:34 Subjective: Ms. Brooks was seen today in follow-up of left sided weakness. She says now both legs are weak, and she has trouble walking. She says she lives alone, and is not sure what she is going to do. - Objective Vital Signs & Weight: Vital Signs (12 hours) Temp Pulse Resp BP Pulse Ox 12/12/19 07:19 97.8 F 74 15 149/79 H 94 L 12/12/19 05:27 93 L 12/12/19 03:05 98.0 F 70 15 116/66 90 L Weight Weight 210 lb Result Diagrams: 12/12/19 04:37 12/12/19 04:37 Hospitalist ROS - Medication Medications: Active Medications Generic Name Dose Route Start Last Admin Trade Name Freq PRN Reason Stop Dose Admin Hydrocodone Bitart/Acetaminophen 1 tab 12/11/19 00:14 12/12/19 09:16 Hydrocodone/Acetaminophen 5/325 Mg Tablet PO 1 tab Q4H PRN Administration Moderate Pain (4-6) Aspirin 81 mg 12/11/19 09:00 12/12/19 09:05 Aspirin 81 Mg Enteric Coated Tablet PO 81 mg DAILY JERILYN Administration Atorvastatin Calcium 80 mg 12/11/19 21:00 12/11/19 20:55 Atorvastatin Calcium 40 Mg Tab PO Not Given HS JERILYN Clopidogrel Bisulfate 75 mg 12/12/19 09:00 12/12/19 09:06 Clopidogrel Bisulfate 75 Mg Tab PO 75 mg DAILY JERILYN Administration Enoxaparin Sodium 40 mg 12/11/19 09:00 12/12/19 09:06 Enoxaparin Sodium 40 Mg/0.4 Ml Syringe SC 40 mg 09 JERILYN Administration Gabapentin 600 mg 12/12/19 09:00 12/12/19 09:06 Gabapentin 300 Mg Cap PO 600 mg DAILY JERILYN Administration Lorazepam 1 mg 12/11/19 03:20 12/11/19 08:50 Lorazepam 2 Mg/Ml Vial SLOW IVP 1 mg Q20M PRN Administration give acid correction hand to MRI Lorazepam 1 mg 12/11/19 12:41 12/12/19 09:19 Lorazepam 1 Mg Tab PO 1 mg BIDPRN PRN Administration Anxiety Metoprolol Succinate 25 mg 12/12/19 09:00 12/12/19 09:05 Metoprolol Succinate Xl 25 Mg Tab PO 25 mg DAILY JERILYN Administration Nicotine 21 mg 12/11/19 09:00 12/12/19 09:06 Nicotine 21 Mg Patch TD 21 mg DAILY JERILYN Administration Ondansetron HCl 4 mg 12/11/19 00:14 12/11/19 11:58 Ondansetron Pf 4 Mg/2 Ml Vial IVP 4 mg Q6H PRN Administration Nausea/Vomiting use 1st Pantoprazole Sodium 40 mg 12/12/19 09:00 12/12/19 09:05 Pantoprazole 40 Mg Tab PO 40 mg DAILY JERILYN Administration Polyethylene Glycol 17 gm 12/11/19 09:00 12/12/19 09:07 Polyethylene Glycol 3350 17 Gm Packet PO Not Given DAILY JERILYN Sodium Chloride 10 ml 12/11/19 00:04 12/11/19 20:52 Flush - Normal Saline 10 Ml Syringe IVF 10 ml PRN PRN Administration Saline Flush - Exam Eye: PERRL, anicteric sclera Heart: RRR, no gallops, no rubs, murmur present, II/IV (at the base) Respiratory: CTAB, no wheezes, no rales, no ronchi Gastrointestinal: soft, non-tender, non-distended, normal bowel sounds, no palpable masses Extremities: no cyanosis, 1+ LE edema (trace pedal edema in both lower extremities) Hosp A/P (1) TIA (transient ischemic attack) Code(s): G45.9 - TRANSIENT CEREBRAL ISCHEMIC ATTACK, UNSPECIFIED Status: Acute (2) Tobacco abuse Code(s): Z72.0 - TOBACCO USE Status: Acute (3) Dyslipidemia Code(s): E78.5 - HYPERLIPIDEMIA, UNSPECIFIED Status: Acute (4) Fracture of metatarsal bone of left foot Code(s): S92.302A - FRACTURE OF UNSP METATARSAL BONE(S), LEFT FOOT, INIT Status: Acute (5) Hypertension Code(s): I10 - ESSENTIAL (PRIMARY) HYPERTENSION Status: Acute - Plan * Left sided weakness- probable TIA. MRI was negative, and C- spine CT also was unremarkable * Low dose aspirin was added, as well as Lipitor * She has been counselled on the need for smoking cessation * HTN- blood pressure is stable * Continue PT/OT * Rehab screen
--- NOTE | 2019-12-12 11:57 | EEG ---
DATE OF SERVICE: 12/11/2019 ATTENDING PHYSICIAN: An Rodrigues MD This EEG was performed using 24-channel Maag[employer]i video digital EEG machine with 24-disk electrodes. This was an extended 2 hours 6 minutes of inpatient video EEG recording. BACKGROUND: The posterior background rhythm is 8 to 8.5 Hz. Minimal reactivity seen with eye opening and closure. HYPERVENTILATION: Not performed. PHOTIC STIMULATION: No significant response seen with photic stimulation. SLEEP: Drowsiness is observed. EEG DIAGNOSIS: Occasional irregular theta activity seen during the recording. CLINICAL INTERPRETATION: This EEG is consistent with mild generalized nonspecific cerebral dysfunction. Job ID: [id number]
[2019-12-12] MEDS: Atorvastatin Calcium 40 MG TAB PO SCH (21:36)
[2019-12-12] MEDS: Gabapentin 300 MG CAP PO SCH (21:36)
[2019-12-13] MEDS: HYDROcodone/Acetaminophen 5/325 mg Tablet PO PRN ×3 (02:58→21:01)
[2019-12-13 05:05] LABS: #Eosinphils 0.1 thou/uL (0.0-0.7); #Lymphocytes 0.8 thou/uL (1.20-3.40); #Monocytes 0.5 thou/uL (0.11-0.59); #Neutrophils 4.8 thou/uL (1.40-6.50); %Basophils 0.1 % (0.0-1.0); %Eosinophils 2.2 % (0.0-10.0); %Lymphocytes 12.9 % (21.0-51.0); %Monocytes 7.7 % (0.0-10.0); %Neutrophils 77.2 % (42.0-75.0); Hemoglobin 13.7 g/dL (12.0-16.0); Mean Corpuscular HGB CONC 33.8 g/dL (32.0-36.0); Mean Corpuscular Hemoglobin 30.9 pg (27.0-31.0); Mean Corpuscular Volume 91.6 fL (78.0-98.0); Mean Platelet Volume 6.9 fL (7.4-10.4); Platelet Count 229 thou/uL (130-400); RBC Distribution Width 12.8 % (11.5-14.5); Red Blood Cell (RBC) Count 4.42 mill/uL (4.20-5.40); White Blood Cell (WBC) Count 6.3 thou/uL (4.8-10.8)
[2019-12-13 05:23] LABS: Anion Gap 11 mmol/L (10-20); BUN (Urea Nitrogen) 15 mg/dL (9.8-20.1); Calc. Creatinine Clearance 60 mL/min (70-130); Calcium 8.4 mg/dL (7.8-10.44); Carbon Dioxide 29 mmol/L (23-31); Chloride 95 mmol/L (98-107); Estimated GFR-MDRD 38; Glucose 106 mg/dL (80-115); Magnesium 1.9 mg/dL (1.6-2.6); Potassium 3.9 mmol/L (3.5-5.1); Sodium 131 mmol/L (136-145)
[2019-12-13] MEDS ORDERED: Magnesium 2 GM/50 ML 2 GM in Premix Bag 1 BAG IVPB SCH (06:15)
[2019-12-13] MEDS: Polyethylene Glycol 3350 17 GM Packet PO SCH (09:37)
[2019-12-13] MEDS: Gabapentin 300 MG CAP PO SCH ×2 (09:38→20:49)
[2019-12-13] MEDS: Clopidogrel Bisulfate 75 MG TAB PO SCH (09:38)
[2019-12-13] MEDS: Aspirin 81 mg Enteric Coated Tablet PO SCH (09:38)
[2019-12-13] MEDS: Nicotine 21 MG PATCH TD SCH (09:40)
[2019-12-13] MEDS: Enoxaparin Sodium 40 MG/0.4 ML SYRINGE SC SCH (09:40)
--- NOTE | 2019-12-13 16:22 | PDOC.HOSPP ---
- Subjective Encounter Date: 12/13/19 Encounter Time: 16:20 Subjective: Ms. Brooks was seen today in follow-up of probable TIA. She notes continued weakness in both legs. She was seen ambulating with PT assistance in the halls. - Objective Vital Signs & Weight: Vital Signs (12 hours) Temp Pulse Resp BP Pulse Ox 12/13/19 11:38 98.5 F 62 18 111/70 93 L 12/13/19 08:00 97.8 F 64 18 147/79 H 95 Weight Weight 210 lb I&O: 12/12/19 12/13/19 12/14/19 06:59 06:59 06:59 Intake Total 450 240 Output Total 650 Balance -200 240 Result Diagrams: 12/13/19 04:38 12/13/19 04:38 Hospitalist ROS - Medication Medications: Active Medications Generic Name Dose Route Start Last Admin Trade Name Freq PRN Reason Stop Dose Admin Hydrocodone Bitart/Acetaminophen 1 tab 12/11/19 00:14 12/13/19 09:39 Hydrocodone/Acetaminophen 5/325 Mg Tablet PO 1 tab Q4H PRN Administration Moderate Pain (4-6) Aspirin 81 mg 12/11/19 09:00 12/13/19 09:38 Aspirin 81 Mg Enteric Coated Tablet PO 81 mg DAILY JERILYN Administration Atorvastatin Calcium 80 mg 12/11/19 21:00 12/12/19 21:36 Atorvastatin Calcium 40 Mg Tab PO 80 mg HS JERILYN Administration Clopidogrel Bisulfate 75 mg 12/12/19 09:00 12/13/19 09:38 Clopidogrel Bisulfate 75 Mg Tab PO 75 mg DAILY JERILYN Administration Enoxaparin Sodium 40 mg 12/11/19 09:00 12/13/19 09:40 Enoxaparin Sodium 40 Mg/0.4 Ml Syringe SC 40 mg 0900 JERILYN Administration Gabapentin 600 mg 12/12/19 21:00 12/13/19 09:38 Gabapentin 300 Mg Cap PO 600 mg BID JERILYN Administration Lorazepam 1 mg 12/11/19 03:20 12/11/19 08:50 Lorazepam 2 Mg/Ml Vial SLOW IVP 1 mg Q20M PRN Administration give health information provider to MRI Lorazepam 1 mg 12/11/19 12:41 12/12/19 21:36 Lorazepam 1 Mg Tab PO 1 mg BIDPRN PRN Administration Anxiety Metoprolol Succinate 25 mg 12/12/19 09:00 12/13/19 09:39 Metoprolol Succinate Xl 25 Mg Tab PO 25 mg DAILY JERILYN Administration Nicotine 21 mg 12/11/19 09:00 12/13/19 09:40 Nicotine 21 Mg Patch TD 21 mg DAILY JERILYN Administration Ondansetron HCl 4 mg 12/11/19 00:14 12/11/19 11:58 Ondansetron Pf 4 Mg/2 Ml Vial IVP 4 mg Q6H PRN Administration Nausea/Vomiting use 1st Pantoprazole Sodium 40 mg 12/12/19 09:00 12/13/19 09:38 Pantoprazole 40 Mg Tab PO 40 mg DAILY JERILYN Administration Polyethylene Glycol 17 gm 12/11/19 09:00 12/13/19 09:37 Polyethylene Glycol 3350 17 Gm Packet PO Not Given DAILY JERILYN Sodium Chloride 10 ml 12/11/19 00:04 12/11/19 20:52 Flush - Normal Saline 10 Ml Syringe IVF 10 ml PRN PRN Administration Saline Flush - Exam Eye: PERRL, anicteric sclera ENT: normocephalic atraumatic, no oropharyngeal lesions Heart: RRR, no murmur, no gallops, no rubs, normal peripheral pulses Respiratory: CTAB, no wheezes, no rales, no ronchi, normal chest expansion, no tachypnea Gastrointestinal: soft, non-tender, non-distended, normal bowel sounds, no palpable masses, no hepatomegaly Extremities: no cyanosis, 1+ LE edema Hosp A/P (1) TIA (transient ischemic attack) Code(s): G45.9 - TRANSIENT CEREBRAL ISCHEMIC ATTACK, UNSPECIFIED Status: Acute (2) Tobacco abuse Code(s): Z72.0 - TOBACCO USE Status: Acute (3) Dyslipidemia Code(s): E78.5 - HYPERLIPIDEMIA, UNSPECIFIED Status: Acute (4) Fracture of metatarsal bone of left foot Code(s): S92.302A - FRACTURE OF UNSP METATARSAL BONE(S), LEFT FOOT, INIT Status: Acute (5) Hypertension Code(s): I10 - ESSENTIAL (PRIMARY) HYPERTENSION Status: Acute - Plan * Left sided weakness- Probable TIA- continue low dose aspirin and Lipitor * She has been counselled on the need for smoking cessation * HTN- blood pressure is stable * Continue PT/OT * Rehab screen
[2019-12-13] MEDS: Atorvastatin Calcium 40 MG TAB PO SCH (20:49)
[2019-12-13] MEDS: Lorazepam 1 MG TAB PO PRN (20:49)
[2019-12-14] MEDS: HYDROcodone/Acetaminophen 5/325 mg Tablet PO PRN ×2 (09:11→18:22)
[2019-12-14] MEDS: Aspirin 81 mg Enteric Coated Tablet PO SCH (09:13)
[2019-12-14] MEDS: Clopidogrel Bisulfate 75 MG TAB PO SCH (09:13)
[2019-12-14] MEDS: Enoxaparin Sodium 40 MG/0.4 ML SYRINGE SC SCH (09:13)
[2019-12-14] MEDS: Gabapentin 300 MG CAP PO SCH ×2 (09:13→20:25)
[2019-12-14] MEDS: Nicotine 21 MG PATCH TD SCH (09:13)
[2019-12-14] MEDS: Polyethylene Glycol 3350 17 GM Packet PO SCH (09:14)
[2019-12-14] MEDS: Lorazepam 1 MG TAB PO PRN (09:24)
[2019-12-14] MEDS ORDERED: Lorazepam 2 MG/ML VIAL SLOW IVP PRN (13:06)
--- NOTE | 2019-12-14 13:08 | PDOC.HOSPP ---
- Subjective Encounter Date: 12/14/19 Encounter Time: 13:07 Subjective: Ms. Brooks was seen today in follow-up of TIA. She does not have any new complaints. - Objective Vital Signs & Weight: Vital Signs (12 hours) Temp Pulse Resp BP BP Pulse Ox 12/14/19 11:36 98.3 F 67 18 122/65 95 12/14/19 07:43 98 F 67 18 118/74 92 L 12/14/19 04:00 97.8 F 59 L 18 125/77 96 Weight Weight 210 lb I&O: 12/13/19 12/14/19 12/15/19 06:59 06:59 06:59 Intake Total 450 240 Output Total 650 Balance -200 240 Result Diagrams: 12/13/19 04:38 12/13/19 04:38 Hospitalist ROS - Medication Medications: Active Medications Generic Name Dose Route Start Last Admin Trade Name Freq PRN Reason Stop Dose Admin Hydrocodone Bitart/Acetaminophen 1 tab 12/11/19 00:14 12/14/19 09:11 Hydrocodone/Acetaminophen 5/325 Mg Tablet PO 1 tab Q4H PRN Administration Moderate Pain (4-6) Aspirin 81 mg 12/11/19 09:00 12/14/19 09:13 Aspirin 81 Mg Enteric Coated Tablet PO 81 mg DAILY JERILYN Administration Atorvastatin Calcium 80 mg 12/11/19 21:00 12/13/19 20:49 Atorvastatin Calcium 40 Mg Tab PO 80 mg HS JERILYN Administration Clopidogrel Bisulfate 75 mg 12/12/19 09:00 12/14/19 09:13 Clopidogrel Bisulfate 75 Mg Tab PO 75 mg DAILY JERILYN Administration Enoxaparin Sodium 40 mg 12/11/19 09:00 12/14/19 09:13 Enoxaparin Sodium 40 Mg/0.4 Ml Syringe SC 40 mg 09 JERILYN Administration Gabapentin 600 mg 12/12/19 21:00 12/14/19 09:13 Gabapentin 300 Mg Cap PO 600 mg BID JERILYN Administration Metoprolol Succinate 25 mg 12/12/19 09:00 12/14/19 09:13 Metoprolol Succinate Xl 25 Mg Tab PO 25 mg DAILY JERILYN Administration Nicotine 21 mg 12/11/19 09:00 12/14/19 09:13 Nicotine 21 Mg Patch TD 21 mg DAILY JERILYN Administration Ondansetron HCl 4 mg 12/11/19 00:14 12/11/19 11:58 Ondansetron Pf 4 Mg/2 Ml Vial IVP 4 mg Q6H PRN Administration Nausea/Vomiting use 1st Pantoprazole Sodium 40 mg 12/12/19 09:00 12/14/19 09:13 Pantoprazole 40 Mg Tab PO 40 mg DAILY JERILYN Administration Polyethylene Glycol 17 gm 12/11/19 09:00 12/14/19 09:14 Polyethylene Glycol 3350 17 Gm Packet PO Not Given DAILY JERILYN Sodium Chloride 10 ml 12/11/19 00:04 12/13/19 20:50 Flush - Normal Saline 10 Ml Syringe IVF 10 ml PRN PRN Administration Saline Flush - Exam Eye: PERRL, anicteric sclera Heart: RRR, no murmur, no gallops, no rubs, normal peripheral pulses Respiratory: CTAB (with the exception of occasional rhonchi) Gastrointestinal: soft, non-tender, non-distended, normal bowel sounds, no palpable masses, no hepatomegaly Extremities: no cyanosis, 1+ LE edema Hosp A/P (1) TIA (transient ischemic attack) Code(s): G45.9 - TRANSIENT CEREBRAL ISCHEMIC ATTACK, UNSPECIFIED Status: Acute (2) Tobacco abuse Code(s): Z72.0 - TOBACCO USE Status: Acute (3) Dyslipidemia Code(s): E78.5 - HYPERLIPIDEMIA, UNSPECIFIED Status: Acute (4) Fracture of metatarsal bone of left foot Code(s): S92.302A - FRACTURE OF UNSP METATARSAL BONE(S), LEFT FOOT, INIT Status: Acute (5) Hypertension Code(s): I10 - ESSENTIAL (PRIMARY) HYPERTENSION Status: Acute - Plan * Left sided weakness- Probable TIA- continue low dose aspirin and Lipitor * Tobacco Abuse * HTN- will re-start Lisinopril and Metoprolol * Continue PT/OT * Patient has decided that she would prefer to go home with Home Health over g oing to Rehab. The order for Home Health has been placed.
[2019-12-14] MEDS ORDERED: Lorazepam 1 MG TAB PO SCH (13:15)
[2019-12-14] MEDS: Atorvastatin Calcium 40 MG TAB PO SCH (20:25)
[2019-12-14] MEDS: Lorazepam 1 MG TAB PO SCH (20:25)
[2019-12-15] MEDS: HYDROcodone/Acetaminophen 5/325 mg Tablet PO PRN ×2 (02:04→10:03)
[2019-12-15 07:48] VITALS: TEMP 97.6
[2019-12-15] MEDS: Gabapentin 300 MG CAP PO SCH (08:42)
[2019-12-15] MEDS: Aspirin 81 mg Enteric Coated Tablet PO SCH (08:42)
[2019-12-15] MEDS: Clopidogrel Bisulfate 75 MG TAB PO SCH (08:42)
[2019-12-15] MEDS: Lorazepam 1 MG TAB PO SCH (08:42)
[2019-12-15] MEDS: Enoxaparin Sodium 40 MG/0.4 ML SYRINGE SC SCH (08:43)
[2019-12-15] MEDS: Polyethylene Glycol 3350 17 GM Packet PO SCH (08:45)
[2019-12-15] MEDS: Nicotine 21 MG PATCH TD SCH (08:45)
[2019-12-15] MEDS ORDERED: Metoprolol Tartrate 50 MG TAB PO SCH (09:00)
[2019-12-15] MEDS ORDERED: Losartan 25 MG TAB PO SCH (09:00)
[2019-12-15] MEDS ORDERED: Potassium Chloride 20 MEQ TAB PO SCH (09:00)
--- NOTE | 2019-12-15 09:55 | PDOC.HOSPP ---
- Subjective Encounter Date: 12/15/19 Encounter Time: 09:54 Subjective: Ms. Brooks was seen today in follow-up of TIA. She does not have any new complaints other than some pain on the lateral aspect of the right knee. - Objective Vital Signs & Weight: Vital Signs (12 hours) Temp Pulse Resp BP BP Pulse Ox 12/15/19 08:42 94 L 12/15/19 07:22 97.6 F 60 15 134/75 94 L 12/15/19 03:04 97.7 F 62 20 134/73 95 Weight Weight 210 lb I&O: 12/14/19 12/15/19 12/16/19 06:59 06:59 06:59 Intake Total 240 700 Balance 240 700 Result Diagrams: 12/13/19 04:38 12/13/19 04:38 Hospitalist ROS - Medication Medications: Active Medications Generic Name Dose Route Start Last Admin Trade Name Freq PRN Reason Stop Dose Admin Hydrocodone Bitart/Acetaminophen 1 tab 12/11/19 00:14 12/15/19 02:04 Hydrocodone/Acetaminophen 5/325 Mg Tablet PO 1 tab Q4H PRN Administration Moderate Pain (4-6) Aspirin 81 mg 12/11/19 09:00 12/15/19 08:42 Aspirin 81 Mg Enteric Coated Tablet PO 81 mg DAILY JERILYN Administration Atorvastatin Calcium 80 mg 12/11/19 21:00 12/14/19 20:25 Atorvastatin Calcium 40 Mg Tab PO 80 mg HS JERILYN Administration Clopidogrel Bisulfate 75 mg 12/12/19 09:00 12/15/19 08:42 Clopidogrel Bisulfate 75 Mg Tab PO 75 mg DAILY JERILYN Administration Enoxaparin Sodium 40 mg 12/11/19 09:00 12/15/19 08:43 Enoxaparin Sodium 40 Mg/0.4 Ml Syringe SC 40 mg 0900 JERILYN Administration Gabapentin 600 mg 12/12/19 21:00 12/15/19 08:42 Gabapentin 300 Mg Cap PO 600 mg BID JERILYN Administration Lorazepam 1 mg 12/14/19 21:00 12/15/19 08:42 Lorazepam 1 Mg Tab PO 1 mg BID JERILYN Administration Losartan Potassium 25 mg 12/15/19 09:00 12/15/19 08:42 Losartan 25 Mg Tab PO 25 mg DAILY JERILYN Administration Metoprolol Succinate 25 mg 12/12/19 09:00 12/15/19 08:42 Metoprolol Succinate Xl 25 Mg Tab PO 25 mg DAILY JERILYN Administration Nicotine 21 mg 12/11/19 09:00 12/15/19 08:45 Nicotine 21 Mg Patch TD 21 mg DAILY JERILYN Administration Ondansetron HCl 4 mg 12/11/19 00:14 12/11/19 11:58 Ondansetron Pf 4 Mg/2 Ml Vial IVP 4 mg Q6H PRN Administration Nausea/Vomiting use 1st Pantoprazole Sodium 40 mg 12/12/19 09:00 12/15/19 08:42 Pantoprazole 40 Mg Tab PO 40 mg DAILY JERILYN Administration Polyethylene Glycol 17 gm 12/11/19 09:00 12/15/19 08:45 Polyethylene Glycol 3350 17 Gm Packet PO Not Given DAILY JERILYN Potassium Chloride 20 meq 12/15/19 09:00 12/15/19 08:43 Potassium Chloride 20 Meq Tab PO 20 meq DAILY JERILYN Administration Sodium Chloride 10 ml 12/11/19 00:04 12/13/19 20:50 Flush - Normal Saline 10 Ml Syringe IVF 10 ml PRN PRN Administration Saline Flush - Exam General Appearance: NAD Eye: PERRL, anicteric sclera Heart: RRR, no murmur, no gallops, no rubs, normal peripheral pulses Respiratory: CTAB, no wheezes, no rales, no ronchi, normal chest expansion Gastrointestinal: soft, non-tender, non-distended, normal bowel sounds, no palpable masses, no hepatomegaly Extremities: no cyanosis, no edema Musculoskeletal: normal tone, normal strength, no muscle wasting Musculoskeletal - other findings: Right knee- no erythema, no effusion, no warmth, no joint laxity Hosp A/P (1) TIA (transient ischemic attack) Code(s): G45.9 - TRANSIENT CEREBRAL ISCHEMIC ATTACK, UNSPECIFIED Status: Acute (2) Tobacco abuse Code(s): Z72.0 - TOBACCO USE Status: Acute (3) Dyslipidemia Code(s): E78.5 - HYPERLIPIDEMIA, UNSPECIFIED Status: Acute (4) Fracture of metatarsal bone of left foot Code(s): S92.302A - FRACTURE OF UNSP METATARSAL BONE(S), LEFT FOOT, INIT Status: Acute (5) Hypertension Code(s): I10 - ESSENTIAL (PRIMARY) HYPERTENSION Status: Acute - Plan * Left sided weakness- Probable TIA- continue low dose aspirin and Lipitor * Tobacco Abuse- counselled * Right sided knee pain- likely due to a strain. Her X-ray was reviewed. There was no evidence of joint instability on physicial exam, no effusion no warmth. * HTN- will re-start Lisinopril and Metoprolol * Continue PT/OT * Home with Home Health today
[2019-12-15 10:33] VITALS: BP 113/74
[2019-12-15] MEDS: FLU VACC QS2020-21(65YR UP)/PF 240 MCG/0.7 ML SYRINGE IM ONE (11:15)
--- NOTE | 2019-12-15 13:08 | PDOC.NEUPN ---
- Subjective Encounter Date: 12/15/19 Subjective: Martínez feels much better morning and denies any new complaints - Objective Vital Signs & Weight: Vital Signs (12 hours) Temp Pulse Resp BP BP BP BP 12/15/19 09:17 113/74 121/65 12/15/19 08:42 12/15/19 07:22 97.6 F 60 15 134/75 12/15/19 03:04 97.7 F 62 20 134/73 Pulse Ox Pulse Ox 12/15/19 09:17 95 12/15/19 08:42 94 L 12/15/19 07:22 94 L 12/15/19 03:04 95 Weight Weight 210 lb I&O: 12/14/19 12/15/19 12/16/19 06:59 06:59 06:59 Intake Total 240 700 Balance 240 700 Result Diagrams: 12/13/19 04:38 12/13/19 04:38 Radiology Reviewed by me: Yes EKG Reviewed by me: Yes ROS - Review of Systems Constitutional: denies: fever, chills, sweats, weakness, malaise, other Eyes: denies: pain, vision change, conjunctivae inflammation, eyelid inflammation, redness, other ENT: denies: ear pain, ear discharge, nose pain, nose discharge, nose congestion, mouth pain, mouth swelling, throat pain, throat swelling, other Respiratory: denies: cough, dry, shortness of breath, hemoptysis, SOB with excertion, pleuritic pain, sputum, wheezing, other Gastrointestinal: denies: nausea, vomiting, abdominal pain, diarrhea, consti pation, melena, hematochezia, other Genitourinary: denies: dysuria, frequency, incontinence, hematuria, retention, other All Systems: All other systems reviewed; all pertinent +/- noted in HPI/Subj - Exam General Appearance: awake alert Eye: PERRL ENT: normocephalic atraumatic Neck: supple Respiratory: CTAB Cardiovascular: RRR Gastrointestinal: soft, non-tender Extremities: no cyanosis, no clubbing Skin: normal turgor Neurological: no new deficit Musculoskeletal: normal tone, no muscle wasting PSYCH: normal affect, normal behavior, A&O x 3 Results - Labs Result Diagrams: 12/13/19 04:38 12/13/19 04:38 Lab results: WBC 6.3 thou/uL (4.8-10.8) 12/13/19 04:38 Hgb 13.7 g/dL (12.0-16.0) 12/13/19 04:38 Hct 40.5 % (36.0-47.0) 12/13/19 04:38 MCV 91.6 fL (78.0-98.0) 12/13/19 04:38 Plt Count 229 thou/uL (130-400) 12/13/19 04:38 Neutrophils % 77.2 % (42.0-75.0) H 12/13/19 04:38 Band Neuts % (Manual) 5 % (5-11) 12/10/19 19:35 ESR Westergren 19 mm/hr (Less than 30) 12/12/19 13:18 Sodium 131 mmol/L (136-145) L 12/13/19 04:38 Potassium 3.9 mmol/L (3.5-5.1) 12/13/19 04:38 Chloride 95 mmol/L (98-107) L 12/13/19 04:38 Carbon Dioxide 29 mmol/L (23-31) 12/13/19 04:38 BUN 15 mg/dL (9.8-20.1) 12/13/19 04:38 Creatinine 1.40 mg/dL (0.6-1.1) H 12/13/19 04:38 Glucose 106 mg/dL (80-115) 12/13/19 04:38 Calcium 8.4 mg/dL (7.8-10.44) 12/13/19 04:38 Total Bilirubin 0.3 mg/dL (0.2-1.2) 12/10/19 19:35 AST 23 U/L (5-34) 12/10/19 19:35 ALT 11 U/L (8-55) 12/10/19 19:35 Alkaline Phosphatase 100 U/L (40-110) 12/10/19 19:35 Creatine Kinase 76 U/L (29-168) 12/12/19 13:18 Troponin I 0.021 ng/mL (< 0.028) 12/11/19 01:33 Serum Total Protein 6.4 g/dL (6.0-8.3) 12/10/19 19:35 Albumin 3.4 g/dL (3.4-4.8) 12/10/19 19:35 Urine Ketones Negative mg/dL (Negative) 12/11/19 01:19 Urine Blood Negative (Negative) 12/11/19 01:19 Urine Nitrite Negative (Negative) 12/11/19 01:19 Ur Leukocyte Esterase Negative Rafaela/uL (Negative) 12/11/19 01:19 Urine RBC 0-3 HPF (0-3) 12/11/19 01:19 Urine WBC 0-3 HPF (0-3) 12/11/19 01:19 Ur Squamous Epith Cells 0-3 HPF (0-3) 12/11/19 01:19 Urine Bacteria Rare-Few HPF (None Seen) 12/11/19 01:19 - Radiology Interpretation MRI - head Status: image reviewed by me, report reviewed by me Additional Comment: MRI brain reviewed and was negative for acute intracranial pathology. PN A/P (1) TIA (transient ischemic attack) Code(s): G45.9 - TRANSIENT CEREBRAL ISCHEMIC ATTACK, UNSPECIFIED Status: Acute (2) Dyslipidemia Code(s): E78.5 - HYPERLIPIDEMIA, UNSPECIFIED Status: Acute (3) Hypertension Code(s): I10 - ESSENTIAL (PRIMARY) HYPERTENSION Status: Acute (4) Tobacco abuse Code(s): Z72.0 - TOBACCO USE Status: Acute - Plan Daily Plan: PT/OT, speech therapy, out of bed/ambulate Ms. Roseanne Brooks 64-year-old female presented with strokelike symptoms. Most likely transient ischemic attack due to multiple comorbidities. Her medical history is significant for dyslipidemia, hypertension and tobacco abuse. MRI brain reviewed and which was negative for acute intracranial pathology. EEG reviewed which was negative for seizure activity. 2D echocardiogram showed left ventricle ejection fraction of 55 to 60%. No thrombus or PFO. Carotid Doppler showed moderate stenosis of left ICA. Dr. Srinivasan, vascular surgeon contacted and this was consistent with her previous findings. Continue aspirin, Plavix and high intensity statin for secondary stroke prevention. Neurochecks every 4 hours. Strict control of blood glucose and blood pressure. Continue home medications. PT/OT/speech. Continue medical management per primary team. Case management on board regarding discharge planning. Awaiting discharge most probably today. Plan discussed with the patient and during MDR rounds.
[2019-12-15 15:15] LABS: ANA Symphony (Qualitative) Negative (Negative); ANA Symphony (Quantitative) 0.1 Ratio (< 0.7 Negative); dsDNA IgG Antibody Less than 0.5 IU/mL (<10 Negative)
--- NOTE | 2019-12-16 10:47 | DIS ---
DATE OF ADMISSION: 12/11/2019 DATE OF DISCHARGE: 12/15/2019 DISCHARGE DISPOSITION: Home with Home Health. DISCHARGE DIAGNOSES: 1. Transient ischemic attack. 2. Ongoing tobacco use. 3. Hypertension. 4. Hyperlipidemia. 5. Chronic obstructive pulmonary disease. 6. Bipolar disorder. 7. Anxiety. 8. Fracture of the second metatarsal of the left foot. DISCHARGE MEDICATIONS: Include: 1. Toprol-XL 50 mg p.o. daily. 2. Neurontin 600 mg p.o. b.i.d. 3. Lipitor 80 mg p.o. q.h.s. 4. Aspirin 81 mg p.o. daily. 5. Vitamin D2 50,000 units every 7 days. 6. Protonix 40 mg p.o. daily. 7. Potassium chloride 20 mEq extended release p.o. daily. 8. Losartan 25 mg p.o. daily. 9. Lorazepam 1 mg p.o. b.i.d. 10. Plavix 75 mg p.o. daily. IMAGING DONE DURING THE HOSPITAL STAY: The patient had a CT scan of the brain, which was negative for any acute intracranial process. The patient had an MRI of the brain showing some chronic ischemic small-vessel change. The patient had an EEG that was negative for any epileptiform activity. The patient had an echocardiogram, the ejection fraction of which was 60% to 65%. There was mild aortic stenosis with a valve area of 1.5 sq cm. The patient had a CT of the C-spine, which was negative for any fracture or subluxation. The patient had carotid Dopplers, which were negative for any flow-limiting disease. CODE STATUS: Full code. ALLERGIES: TO CODEINE AND TETRACYCLINE. HOSPITAL COURSE: Ms. Brooks is a pleasant 64-year-old female, who was admitted to the hospital when she had symptoms of left-sided weakness, feeling weak. The weakness caused her to fall and injure her head as well as her leg and her knee. She was admitted to the hospital and an evaluation for possible stroke was undertaken. MRI of the brain was negative for acute stroke and her symptoms resolved. It is noted that she has ongoing tobacco use and her cholesterol was not optimally controlled. She was seen by the neurologist on staff, who agreed with smoking cessation, the adding of a statin as well as a baby aspirin daily. During the fall, she injured her foot, x-rays of which demonstrated a fracture of the second metatarsal on the left foot. An orthopedic consult was obtained. The patient did not require any type of surgical intervention, but was placed in a post-surgery shoe. She was also allowed to weightbear as tolerated. The remainder of her hospital stay was primarily in anticipation of discharge planning. The patient initially said she was too weak to go home, but after the weekend, her strength seemed to improve. She was re-evaluated by Physical Therapy and Occupational Therapy and by this time, she was walking 30 to 50 feet, was transferring better with assistance. She plans to have a friend of hers come stay with her and she preferred to go home with Home Health instead of going to a [facility] or rehab facility. During her hospital stay, she was counseled on the need for smoking cessation. An x-ray of her knee was also obtained, which was negative for any type of fracture or dislocation. On exam, her knee joint did not demonstrate any type of joint laxity. There was no effusion or erythema and it is suspected that she likely had a ligament strain or partial meniscal tear, although there was no popping, clicking on exam. This likely should improve with rest. The patient was subsequently discharged home on 12/15/2019. Job ID: [id number]
[2019-12-19] MEDS ORDERED: Ergocalciferol 1.25 MG(50,000 UNITS) CAP PO SCH (09:00)
== END 2019-12-15 11:59 | disposition home or self-care (01) | DRG 69 ==
LOC: ERS 18:24 → 2SE 12-11 00:26
PROVIDERS: ADMIT Internal Medicine; ATTEND Internal Medicine
DX: G45.9 Transient cerebral ischemic attack, unspecified (principal); G81.94 Hemiplegia, unspecified affecting left nondominant side; N17.9 Acute kidney failure, unspecified; E87.1 Hypo-osmolality and hyponatremia; N18.4 Chronic kidney disease, stage 4 (severe); Z20.828 Contact with and (suspected) exposure to other viral communicable diseases; I25.10 Atherosclerotic heart disease of native coronary artery without angina pectoris; E78.5 Hyperlipidemia, unspecified; J44.9 Chronic obstructive pulmonary disease, unspecified; F17.210 Nicotine dependence, cigarettes, uncomplicated; I12.9 Hypertensive chronic kidney disease with stage 1 through stage 4 chronic kidney disease, or unspecified chronic kidney disease; W19.XXXA Unspecified fall, initial encounter; S92.335A Nondisplaced fracture of third metatarsal bone, left foot, initial encounter for closed fracture; F41.9 Anxiety disorder, unspecified; F31.9 Bipolar disorder, unspecified; Z23 Encounter for immunization; Z90.49 Acquired absence of other specified parts of digestive tract; Z90.710 Acquired absence of both cervix and uterus; Z95.1 Presence of aortocoronary bypass graft; Z88.5 Allergy status to narcotic agent; Z88.8 Allergy status to other drugs, medicaments and biological substances; Z79.899 Other long term (current) drug therapy
CPT/HCPCS: 36415; 70450; 70551; 71045; 72125; 80048; 80053; 80061; 81001; 82550; 83735; 84484; 85025; 85652; 86038; 86225; 87635; 90471; 90662; 90715; 93005; 93306; 93880; 95712; 95816; 95819; 95957; 96374; 96375; G0008; J1650; J2060; J2270; J2405; J3475; U0003

== ENCOUNTER 2021-02-03 13:25 | Outpatient (CLI) | payer MEDICARE | END 2021-02-03 13:26 | disposition home or self-care (01) | LOC: BICMAMMO 13:25 | PROVIDERS: ATTEND Family Medicine | DX: Z12.31 Encounter for screening mammogram for malignant neoplasm of breast (principal); Z13.820 Encounter for screening for osteoporosis; Z78.0 Asymptomatic menopausal state; N63.14 Unspecified lump in the right breast, lower inner quadrant; M85.89 Other specified disorders of bone density and structure, multiple sites | CPT/HCPCS: 77063; 77067; 77080 ==